=== PATIENT | male | born 1995 | race Caucasian/White ===

== ENCOUNTER 2019-03-28 21:33 | Emergency (ER) | payer MEDICAID, SELFPAY ==
[2019-03-28 21:40] VITALS: BP 156/93; PULSE 109; RESP 16; TEMP 36.9; O2SAT 98; BMI 46.0
[2019-03-28 22:31] LABS: Basophils # 0.1 10^3/uL (0.0-0.1); Basophils % 0.7 %; Eosinophils # 0.2 10^3/uL (0.0-0.8); Eosinophils % 1.4 %; Hematocrit 44.9 % (42.0-52.0); Hemoglobin 14.5 g/dL (11.7-16.6); Lymphocytes # 2.1 10^3/uL (0.8-4.8); Lymphocytes % 17.5 %; Mean Corpuscular HGB Conc 32.3 g/dL (30.0-36.0); Mean Corpuscular Hemoglobin 27.1 pg (28.0-34.0); Mean Corpuscular Volume 83.9 fL (80-94); Mean Platelet Volume 9.3 fL (7.4-10.4); Monocytes # 0.8 10^3/uL (0.2-0.9); Monocytes % 6.4 %; Neutrophils # 8.8 10^3/uL (1.8-7.7); Neutrophils % 73.3 %; Nucleated Red Blood Cells % 0 %; Platelet Count 370 10^3/cmm (130-400); Red Blood Count 5.35 10^6/uL (4.1-5.3); Red Cell Distribution Width 12.8 % (12.1-15.1)
[2019-03-28 22:40] LABS: INR 0.94 (0.8-1.2); Partial Thromboplastin Time 25.5 SECONDS (23.9-36.7)
[2019-03-28 23:14] VITALS: BP 148/76; PULSE 82; RESP 24; O2SAT 96
--- NOTE | 2019-03-29 01:16 | ED_ITS ---
HPI - Skin/Abscess/Foreign Bdy General: Chief complaint: Allergic Reaction Stated complaint: possible allergic reaction Time Seen by Provider: 03/28/19 21:54 Source: patient Mode of arrival: ambulatory Limitations: no limitations History of Present Illness: HPI narrative: Patient is a 23-year-old male who presents to ED today with complaints of a bilateral palmar rash that he noticed today. He states rash is not pruritic or painful. He cannot identify any household/chemical exposures he might have been exposed to. He denies any other symptoms along with the rash. MD complaint: rash Location: L hand and R hand Associated symptoms: Deny chills, fever(s), nausea or vomiting Review of Systems Const: Denies: fever, chills, body aches, fatigue or malaise Eyes: Denies: change in vision or blurry vision ENMT: Denies: throat pain, enlarged tonsils, painful swallowing or oral sores/lesions Card: Denies: chest pain, palpitations, irregular heart rhythm, lightheadedness, syncope or shortness of breath on exertion Resp: Denies: shortness of breath, productive cough or pain on inspiration GI: Denies: abdominal pain, nausea, vomiting, heartburn/indigestion or diarrhea : Denies: difficulty urinating, painful urination, genital lesion, penile discharge or testicular pain Musc: Denies: neck pain, back pain or joint pain Skin/Breast: Reports: rash; Denies: itching, skin tenderness, skin swelling, sores or nail changes Neuro: Denies: headache, numbness in extremities, weakness in extremities or changes in sensation PFSH ED PFSH: Statuses (acute, chronic, etc) shown below reflect problem list status as previously entered and may not be historically accurate Social History Smoking and tobacco status: former smoker Physical Exam Const: COMMON NORMALS: no apparent distress, oriented x3, no limitations and alert HENMT: COMMON NORMALS: normocephalic, head/scalp atraumatic, EAC's normal, nasal mucous membranes and turbinates normal, moist oral mucous membranes and oropharynx normal HEAD & SCALP: normocephalic and atraumatic NOSE: nasal mucous membranes and turbinates normal EXTERNAL AUDITORY CANAL: EAC's normal MOUTH: oral and palatal mucosa normal THROAT: posterior oropharynx normal, tonsils normal and uvula midline Eye: COMMON NORMALS: PERRL, EOMs intact bilaterally and no scleral icterus PUPIL: Yes PERRL Neck/C-Spine: COMMON NORMALS: full ROM, no lymphadenopathy, supple and no meningeal signs Lymph: LYMPHATIC: no lymphadenopathy noted Chest: COMMONS NORMALS: inspection of chest normal Resp: COMMON NORMALS: normal respiratory effort and clear to auscultation bilaterally AUSCULTATION: clear to auscultation bilaterally Cardio: COMMON NORMALS: regular rate and regular rhythm RATE: regular rate RHYTHM: regular rhythm GI: COMMON NORMALS: normal to inspection, nondistended, normoactive bowel sounds, soft to palpation, non-tender, no hepatosplenomegaly and no masses PALPATION: Yes soft and Yes no hepatosplenomegaly : COMMON NORMALS: Yes no CVA tenderness BLADDER/KIDNEY EXAM: Yes no CVA tenderness Back/Pelvis: COMMON NORMALS: no CVA tenderness and thoracic and lumbar spine normal to inspection Extremity: COMMON NORMALS: normal to inspection Neuro: COMMON NORMALS: oriented x3 SENSORIUM/ORIENTATION: Yes alert MENINGEAL SIGNS: Yes no meningeal signs Skin: NARRATIVE SKIN EXAM: Patient has a blanching petechial appearing rash to bilateral palms of his hands. Course Vital Signs: Vital signs: Vital Signs Temperature 98.5 F 03/28/19 21:40 Pulse Rate 82 03/28/19 23:14 Respiratory Rate 24 H 03/28/19 23:14 Blood Pressure 148/76 03/28/19 23:14 Pulse Oximetry 96 03/28/19 23:14 MDM - Skin/Abscess/Foreign Bdy MDM Narrative: Medical decision making narrative: Patient's labs including coags are completely normal. This does not appear to have any systemic involvement. Recommend he follow-up with PCP for further evaluation. Lab Data: Labs: Lab Results 03/28/19 03/28/19 Range/Units 22:12 22:12 WBC 12.0 H (4.0-10.0) 10^3/ uL RBC 5.35 H (4.1-5.3) 10^6/u L Hgb 14.5 (11.7-16.6) g/dL Hct 44.9 (42.0-52.0) % MCV 83.9 (80-94) fL MCH 27.1 L (28.0-34.0) pg MCHC 32.3 (30.0-36.0) g/dL RDW 12.8 (12.1-15.1) % Plt Count 370 (130-400) 10^3/c mm MPV 9.3 (7.4-10.4) fL Neut % (Auto) 73.3 % Lymph % (Auto) 17.5 % Sibley % (Auto) 6.4 % Eos % (Auto) 1.4 % Baso % (Auto) 0.7 % Neut # (Auto) 8.8 H (1.8-7.7) 10^3/u L Lymph # (Auto) 2.1 (0.8-4.8) 10^3/u L S[place]y # (Auto) 0.8 (0.2-0.9) 10^3/u L Eos # (Auto) 0.2 (0.0-0.8) 10^3/u L Baso # (Auto) 0.1 (0.0-0.1) 10^3/u L Nucleated RBC % (a uto) 0 % Nucleated RBCs # 0.0 /100WBC PT 12.90 (10.5-13.3) SECO NDS INR 0.94 (0.8-1.2) APTT 25.5 (23.9-36.7) SECO NDS Discharge Plan Discharge Patient Disposition: Home, Self-Care Clinical Impression: Rash of hands Condition: Stable Prescriptions: No Action aripiprazole 5 mg tablet 5 mg PO DAILY RF: 0 Discharge Orders: Discharge Order (Routine); Ordered 03/28/19 Ordered By: Chaya Don Referrals: Krupa Monson DO [Family Provider] - Discharge Diet: Usual diet Discharge Activity: Resume usual activity Activity Restrictions/Additional Instructions: Follow up with primary care in a few days if rash persists. Discharge Date/Time: 03/28/19 23:15 Coding Level of Care Code ED Machine Pecan Picker for Puneet Suárez
== END 2019-03-28 23:15 | disposition home or self-care (01) ==
PROVIDERS: Emergency Provider Physician Assistant; Family Provider Family Medicine
DX: R21 Rash and other nonspecific skin eruption (principal); Z87.891 Personal history of nicotine dependence
CPT/HCPCS: 85025; 85610; 85730; 99281; 99282

== ENCOUNTER 2019-05-22 22:49 | Emergency (ER) | payer MEDICAID, SELFPAY ==
[2019-05-22 23:03] VITALS: PULSE 104; RESP 16; TEMP 36.5; O2SAT 96; BMI 46.0
--- NOTE | 2019-05-22 23:09 | XR_ITS ---
WS: [id number] RIGHT ANKLE: 3 VIEW(S) TECHNIQUE: AP, oblique(s) and lateral. HISTORY: twisted COMPARISON: 05/16/2015 No ankle fracture is identified. Seen on the lateral projection only is a lucency through the anterio r calcaneal process. Not present on the prior studies. Also not identified on the foot radiograph. No additional abnormalities suspected. No joint effusion or widening of the ankle mortise. No significant degenerative changes at the joint spaces. No soft tissue abnormality. XR/XR ankle RT min 3V* [id number] IMPRESSION: Indeterminate for fracture involving the anterior process calcaneus. For contin ued pain consider CT evaluation.
--- NOTE | 2019-05-22 23:09 | XR_ITS ---
WS: [id number] RIGHT FOOT: 3 VIEW(S) TECHNIQUE: PA, oblique and lateral. HISTORY: twisted COMPARISON: None available. No acute fracture or dislocation. Normal tarsal/metatarsal alignment. No soft tissue abnormality or bone destruction. XR/XR foot RT min 3V* [id number] IMPRESSION: Normal RIGHT foot.
--- NOTE | 2019-05-22 23:10 | W.ED.LOWEXIN ---
HPI - Extremity Injury (Lower) General: Chief Complaint: Extremity Injury, Lower Stated Complaint: foot pain Time Seen by Provider: 05/22/19 23:03 Source: patient Mode of arrival: ambulatory Limitations: no limitations History of Present Illness: HPI Narrative: was walking down a flight of stairs and twisted R foot/ankle; ambulatory with a limp since MD complaint: ankle injury and foot injury Onset (ago): hour(s) Injury: Right: ankle and foot Place: home Relieving factors: immobilization Exacerbating factors: weight bearing, movement and palpation Associated symptoms: Reports no associated symptoms Other symptoms: none Review of Systems Musc: Reports: joint pain (R foot/ankle) Neuro: Denies: numbness in extremities or changes in sensation PFSH ED PFSH: Social History Smoking and tobacco status: never smoked Physical Exam Const: COMMON NORMALS: no apparent distress, oriented x3, no limitations and alert NUTRITIONAL APPEARANCE: obese morbidly obese Extremity: OTHER: TTP medial malleolus R ankle, R heel, R plantar arch; no swelling appreciated; no bony abnormality noted; no dislocation present; DP/PT pulses intact and equal bilaterally; cap refill brisk Neuro: COMMON NORMALS: oriented x3, no focal motor deficits and no sensory deficits noted SENSORIUM/ORIENTATION: Yes alert Skin: COMMON NORMALS: no rashes or lesions noted GENERAL SKIN EXAM: no rashes or lesions noted Course Vital Signs: Vital signs: Vital Signs Temperature 97.7 F 05/22/19 23:03 Pulse Rate 104 H 05/22/19 23:03 Respiratory Rate 16 05/22/19 23:03 Pulse Oximetry 96 05/22/19 23:03 MDM - Extremity Injury (Lower) Imaging Data^: R foot XR: My impression: NAD R ankle XR: My impression: NAD Discharge Plan Discharge Patient Disposition: Home, Self-Care Clinical Impression: Ankle sprain and strain Condition: Stable Prescriptions: No Action aripiprazole 5 mg tablet 5 mg PO DAILY RF: 0 Discharge Orders: Discharge Order (Routine); Ordered 05/23/19 Ordered By: Chaya Don Referrals: Krupa Monson DO [Family Provider] - Discharge Diet: Usual diet Discharge Activity: Increase activity as tolerated and Use walker/crutches as instructed Patient Instructions: Ankle Sprain (ED) Coding Level of Care Code ED Business Strategist for Chg Fwd Exam Expanded Problem Focused
[2019-05-23 00:58] VITALS: BP 128/76; PULSE 76; RESP 16; O2SAT 76
== END 2019-05-23 01:01 | disposition home or self-care (01) ==
PROVIDERS: Emergency Provider Physician Assistant; Family Provider Family Medicine
DX: S93.401A Sprain of unspecified ligament of right ankle, initial encounter (principal); X50.1XXA Overexertion from prolonged static or awkward postures, initial encounter
CPT/HCPCS: 12345; 73610; 73630; 99281; 99283

== ENCOUNTER 2020-04-28 16:03 | Emergency (ER) | payer MEDICAID, SELFPAY ==
[2020-04-28 16:33] VITALS: BP 148/90; PULSE 109; RESP 14; TEMP 37.1; O2SAT 97; BMI 47.7
--- NOTE | 2020-04-28 16:42 | W.ED.GENADLT ---
HPI - General Adult General: Chief complaint: General Medical Stated complaint: sore throat since sun. losing voice Time Seen by Provider: 04/28/20 16:41 Source: patient Mode of arrival: ambulatory History of Present Illness: HPI narrative: 24-year-old male complaining of hoarse voice and congestion for the last 4 days. He says his friend had similar symptoms and was diagnosed with tonsilitis . The patient took an unknown antibiotic pill that he found at home x1. He denies any fever. He complains of only slight pain when he swallows, he is more concerned about his hoarseness and losing his voice. No neck pain, drooling, dental pain, or pain with speaking. Associated symptoms: Deny chest pain, dyspnea, headache(s), nausea, rash, palpitations or vomiting Review of Systems General: Reports: 10 or more systems reviewed and unremarkable except in HPI and below Const: Denies: fever(s), chills, body aches or change in appetite Eyes: Denies: change in vision, blurry vision or blind spots ENMT: Reports: uvular edema, enlarged tonsils and hoarseness; Denies: swelling of lips/tongue, oral sores, dental pain, dry mouth, nasal discharge or sinus pain Card: Denies: chest pain, palpitations or irregular heart rhythm Resp: Reports: chest congestion; Denies: dyspnea, productive cough, non-productive cough, wheezing, stridor or pain on inspiration GI: Denies: abdominal pain, nausea or vomiting Musc: Denies: neck pain, extremity pain or extremity swelling Skin/Breast: Denies: rash, pruritus, erythema or photosensitivity Neuro: Denies: headache(s), numbness in extremities or weakness in extremities Psych: Denies: anxiety, depression or mood swings All/Imm: Reports: throat swelling; Denies: tongue swelling, facial swelling or acute wheezing PFSH ED PFSH: Social History Smoking and tobacco status: never smoked Physical Exam Const: COMMON NORMALS: no acute distress GENERAL APPEARANCE: cooperative and comfortable; not in distress, not anxious and not ill appearing NUTRITIONAL APPEARANCE: obese HENMT: COMMON NORMALS: normocephalic, atraumatic and Normal external nose present HEAD & SCALP: normocephalic and atraumatic FACE & SINUS: normal facial exam and face symmetric NOSE: Normal external nose present MOUTH: no drooling, tongue not abnormal, no trismus and no restricted motion TEETH & GINGIVA: Yes caries and Yes poor dentition THROAT: uvula midline, abnormal tonsil bilateral hypertrophy, posterior oropharynx abnormal edema and erythema and uvular edema; no peritonsillar mass and uvula not laterally displaced Eye: COMMON NORMALS: Equal, round and reactive pupils present and EOMs intact bilaterally GENERAL EYE: appearance normal, both eyes and all related structures PUPIL: Yes Equal, round and reactive pupils present Neck/C-Spine: COMMON NORMALS: full ROM, no lymphadenopathy, supple and Thyroid normal GENERAL: Yes trachea midline, No anterior neck swelling, No lymphadenopathy and No tender THYROID: Thyroid normal and symmetrical Chest: COMMONS NORMALS: normal inspection of the chest Resp: COMMON NORMALS: normal respiratory effort and No retractions EFFORT & INSPECTION: Yes able to speak in complete sentences, No labored, No stridor, No Actively coughing and No audible wheezes Cardio: COMMON NORMALS: regular rate and regular rhythm RATE: regular rate RHYTHM: regular rhythm Skin: COMMON NORMALS: no rashes or lesions noted and no wounds GENERAL SKIN EXAM: no rashes or lesions noted Course Vital Signs: Vital signs: Vital Signs Temperature 98.7 F 04/28/20 16:33 Pulse Rate 109 H 04/28/20 16:33 Respiratory Rate 14 04/28/20 16:33 Blood Pressure 148/90 04/28/20 16:33 Pulse Oximetry 97 04/28/20 16:33 MDM - General Adult MDM Narrative: Medical decision making narrative: 24-year-old male with laryngitis. Strep negative. No fever, trismus, stridor, or difficulty swallowing. No adenopathy. Most likely viral in etiology, He does have a very shallow hypopharynx, and him being obese, he likely suffers from obstructive sleep apnea which aggravates his throat. Well give him a dose of oral Decadron here, followed by prednisone for 5 days. He can take [id number] Tylenol and ibuprofen as needed. He needs to return immediately if he develops fever, painful or difficult swallowing, swelling of his neck, Medical Records: Attestation: I reviewed the patient's medical records. Lab Data: Attestation: I reviewed the patient's lab results. Labs: Lab Results 04/28/20 Range/Units 16:49 Group A Strep Rapi d Negative (Negative) Discharge Plan Discharge Patient Disposition: Home Clinical Impression: Laryngitis, acute Condition: Stable Prescriptions: New prednisone 20 mg tablet 40 mg PO DAILY 5 Days Qty: 20 RF: 0 No Action aripiprazole 5 mg tablet 5 mg PO DAILY RF: 0 Discharge Orders: Discharge ED (Routine); Ordered 04/28/20 Ordered By: Amparo Carlson Referrals: Krupa Monson DO [Primary Care Provider] - Discharge Diet: Advance as tolerated Discharge Activity: Resume usual activity Patient Instructions: Laryngitis (ED) Activity Restrictions/Additional Instructions: Rest, drink plenty of fluids, Follow-up with your primary care doctor in 3 days to make sure your symptoms are improving. Return immediately to the ER if you develop worsening sore throat, swelling, or difficulty breathing. Coding Level of Care Code ED Electrode Turner And Finisher for Puneet Suárez
[2020-04-28 17:40] LABS: Rapid Strep A Test Negative (Negative)
[2020-04-28] MEDS: dexamethasone 4 mg Tablet 10 MG PO (18:06)
[2020-04-28 18:09] VITALS: PULSE 99; RESP 15; O2SAT 97
== END 2020-04-28 18:10 | disposition home or self-care (01) ==
PROVIDERS: Emergency Provider Family Medicine; PCP Family Medicine
DX: J04.0 Acute laryngitis (principal)
CPT/HCPCS: 87081; 87880; 99283; J8540

== ENCOUNTER 2020-05-15 23:24 | Emergency (ER) | payer MEDICAID, SELFPAY ==
[2020-05-15 23:43] VITALS: BP 167/92; PULSE 110; RESP 16; TEMP 36.9; O2SAT 99; BMI 47.4
--- NOTE | 2020-05-16 00:24 | ED_ITS ---
HPI - Nausea/Vomiting/Diarrhea General: Chief complaint: Nausea/Vomiting/Diarrhea Stated complaint: n/v Time Seen by Provider: 05/15/20 23:44 Source: patient Mode of arrival: ambulatory Limitations: no limitations History of Present Illness: HPI Narrative: 24-year-old male patient presents to the emergency department with nausea vomiting and diarrhea x24 hours. He reports able to eat crackers and soup and fast food this evening, reports able to tolerate Dr. Pepper and Sprite. He reports when he eats heavy foods such as fried chicken, he begins to vomit. He reports similar symptoms approximately 1 year ago when he was diagnosed with a stomach bug. He denies hematemesis or hematochezia, diarrhea episodes x2. Denies exposure to ill individuals. He denies fever or chills or abdominal pain. He also complains of asthma symptoms. Reports utilizing albuterol inhaler 2-3 times daily. States mobilizes up and down stairs with shortness of breath and wheezing. He is requesting prednisone to help with wheezing and cough. He states has upcoming appointment with Dr. Monson for asthma. He is requesting no needles or IV. He is tolerating some foods and fluids without vomiting. MD elicited complaint: nausea, vomiting and diarrhea Onset (ago): day(s) (1) Description of vomiting: food contents Description of diarrhea: watery Associated nausea: Yes Associated abdominal pain: No Location of pain: None Severity: mild Exacerbating factors: eating (Heavy foods) Associated symtoms: Reports cough and nausea; Denies anxiety, chest pain, diaphoresis, dysuria, fecal incontinence, headache(s) or palpitations Review of Systems General: Reports: 10 or more systems reviewed and unremarkable except in HPI and below Const: Denies: fever(s), chills or diaphoresis Eyes: Denies: blurry vision or eye redness ENMT: Denies: throat pain, dental pain or disequilibrium Card: Denies: chest pain, palpitations or irregular heart rhythm Resp: Denies: dyspnea, productive cough, non-productive cough or wheezing GI: Reports: nausea, vomiting and diarrhea; Denies: abdominal pain, hematemesis, heartburn, constipation or fecal incontinence : Denies: difficulty urinating, dysuria, difficulty starting urination or nocturia Musc: Denies: neck pain, back pain or joint pain Skin/Breast: Denies: rash, pruritus, erythema or skin tenderness Neuro: Denies: headache(s), weakness in extremities or behavioral changes Psych: Denies: anxiety, depression, mood swings or hopelessness Juan A/Lymph: Denies: easy bruising PFSH ED PFSH: Social History Smoking and tobacco status: never smoked Physical Exam Const: COMMON NORMALS: no acute distress, patient oriented x3, healthy appearing, alert and well nourished GENERAL APPEARANCE: cooperative, comfortable, well kempt, well developed and well hydrated; not anxious and not ill appearing NUTRITIONAL APPEARANCE: overweight ORIENTATION/CONSCIOUSNESS: Yes awake, Yes oriented to person, Yes oriented to place and Yes oriented to time HENMT: COMMON NORMALS: normocephalic, Normal external nose present and moist oral mucous membranes HEAD & SCALP: normocephalic NOSE: Normal external nose present Eye: COMMON NORMALS: Equal, round and reactive pupils present and EOMs intact bilaterally GENERAL EYE: appearance normal, both eyes and all related structures PUPIL: Yes Equal, round and reactive pupils present Neck/C-Spine: COMMON NORMALS: full ROM and no lymphadenopathy GENERAL: Yes normal visual inspection and Yes trachea midline CERVICAL SPINE: Yes cervical ROM normal Lymph: LYMPHATIC: no lymphadenopathy noted Chest: COMMONS NORMALS: normal inspection of the chest and normal palpation of entire chest wall Resp: COMMON NORMALS: normal respiratory effort, No retractions, No use of accessory muscles and clear to auscultation bilaterally EFFORT & INSPECTION: Yes able to speak in complete sentences AUSCULTATION: clear to auscultation bilaterally Cardio: COMMON NORMALS: regular rate, regular rhythm, S1 normal heart sound present, S2 normal heart sound present and Peripheral pulses 2+ throughout RATE: regular rate RHYTHM: regular rhythm HEART SOUNDS: S1 normal heart sound present and S2 normal heart sound present PERIPHERAL PULSES: Peripheral pulses 2+ throughout GI: COMMON NORMALS: Normal to inspection, nondistended, normoactive bowel sounds present, Soft to palpation and non-tender INSPECTION: Yes normal to inspection and No abdominal wall ecchymosis PALPATION: Yes Soft to palpation : COMMON NORMALS: Yes no CVA tenderness BLADDER/KIDNEY EXAM: Yes no CVA tenderness Back/Pelvis: COMMON NORMALS: no CVA tenderness and thoracic and lumbar spine normal to inspection Extremity: COMMON NORMALS: normal to inspection, full ROM, capillary refill normal and no pedal edema GENERAL: Yes normal exam except as noted Neuro: COMMON NORMALS: patient oriented x3 and no focal motor deficits SENSORIUM/ORIENTATION: Yes alert, Yes oriented to person, Yes oriented to place and Yes oriented to time Psych: COMMON NORMALS: mental status grossly normal, Normal thought process present, cooperative, normal affect, speech normal and activity/motor behavior normal APPEARANCE: Yes well kempt ACTIVITY/MOTOR BEHAVIOR: Yes appropriate eye contact SPEECH: Yes normal speech THOUGHT PROCESS: Normal thought process present Skin: COMMON NORMALS: no rashes or lesions noted and turgor normal GENERAL SKIN EXAM: no rashes or lesions noted and turgor normal Course Vital Signs: Vital signs: Vital Signs Temperature 98.5 F 05/15/20 23:43 Pulse Rate 84 05/16/20 01:59 Respiratory Rate 18 05/16/20 01:59 Blood Pressure 155/89 05/16/20 01:59 Pulse Oximetry 99 05/16/20 01:59 MDM - Nausea/Vomiting/Diarrhea MDM Narrative: Medical decision making narrative: 24-year-old male patient presents to the emergency department with 24-hour onset of nausea vomiting diarrhea. His concern tonight is that he cannot eat regular food. He remains vomiting with food such as fried chicken, he is able to tolerate p.o. fluid and bland foods without vomiting. He was administered Pepcid and Zofran here in the ED, patient tolerated Jell-O and Sprite without vomiting. Prescription of Zofran and Pepcid provided. He was also prescribed prednisone due to complaints of asthma symptoms. He was advised to follow-up with Dr. Monson this week for asthma symptoms. Discharge Plan Discharge Patient Disposition: Home Clinical Impression: Gastroenteritis Asthma Qualifiers: Asthma severity: mild Asthma persistence: intermittent Asthma complication type: unspecified Qualified Code(s): J45.20 - Mild intermittent asthma, uncomplicated Condition: Stable Prescriptions: New Zofran 4 mg tablet 4 mg PO Q4H 5 Days Qty: 14 RF: 0 prednisone 20 mg tablet 20 mg PO BID 5 Days Qty: 10 RF: 0 Pepcid 20 mg tablet 20 mg PO BID Qty: 20 RF: 0 No Action aripiprazole 5 mg tablet 5 mg PO DAILY RF: 0 Discharge Orders: Discharge ED (Routine); Ordered 05/16/20 Ordered By: Corinne Younger Referrals: Krupa Monson DO [Primary Care Provider] - Discharge Diet: Advance as tolerated and Clear Liquid Discharge Activity: Limit activity as instructed Patient Instructions: [place] Diet - Adult, Asthma (ED), Gastroenteritis (ED), Acute Nausea and Vomiting (ED), Opioid Safety Activity Restrictions/Additional Instructions: Follow-up with your primary care provider next week for asthma control Return the emergency department if you develop difficulty breathing, inability to catch her breath, further nausea vomiting with use of Zofran Clear liquid diet x24 hours then advance as tolerated, avoid fried greasy fatty spicy foods x1 week. Small frequent meals, bland diet such as applesauce, toast, bananas Push fluids to avoid dehydration Coding Level of Care Code ED Human Resources Specialist for Chg Fwd Exam Comprehensive
[2020-05-16 00:46] VITALS: BP 160/84; PULSE 78; RESP 18; O2SAT 98
[2020-05-16] MEDS: famotidine 20 mg Tablet 40 MG PO (01:02)
[2020-05-16] MEDS: ondansetron 4 MG Tablet PO (01:02)
[2020-05-16] MEDS: predniSONE 20 mg Tablet PO (01:02)
[2020-05-16 01:46] VITALS: BP 158/88; PULSE 78; RESP 18; O2SAT 99
[2020-05-16 01:59] VITALS: BP 155/89; PULSE 84; RESP 18; O2SAT 99
== END 2020-05-16 02:01 | disposition home or self-care (01) ==
PROVIDERS: Emergency Provider Nurse Practitioner Family; PCP Family Medicine
DX: K52.9 Noninfective gastroenteritis and colitis, unspecified (principal); J45.20 Mild intermittent asthma, uncomplicated
CPT/HCPCS: 99283; J7512; Q0162